=== PATIENT | male | born 2000 | race Asian ===

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

== ENCOUNTER 2018-12-18 10:01 | Emergency (ER) | payer BC, OTHER | END 2018-12-18 11:46 | disposition home or self-care (01) | DX: L05.91 Pilonidal cyst without abscess (principal) ==